=== PATIENT | male | born 2000 | race Caucasian/White ===

== ENCOUNTER 2021-06-28 11:20 | Emergency (ER) | payer OTHER ==
[2021-06-28 12:40] VITALS: BP 115/74; PULSE 80
[2021-06-28] MEDS ORDERED: Ondansetron 4 MG/2 ML SDV IVPUSH ONE (12:41)
[2021-06-28] MEDS ORDERED: Sodium Chloride 0.9% 1,000 ML IV SCH (12:45)
[2021-06-28] MEDS ORDERED: Ketorolac 60 MG/2 ML SDV IM ONE (14:49)
--- NOTE | 2021-06-28 14:58 | EDM.PDOC ---
ED HPI GENERAL MEDICAL PROBLEM - General Chief Complaint: Back Pain or Injury Stated Complaint: BACK PAIN Time Seen by Provider: 06/28/21 14:43 Source of Information: Reports: Patient, RN Notes Reviewed History Limitations: Reports: No Limitations - History of Present Illness INITIAL COMMENTS - FREE TEXT/NARRATIVE: Patient is a 20-year-old male who presents to the ER for his lower back pain. States he has been having issues with this for about the last year. Has been going to the chiropractor for most of his management but he states over the last 3 or 4 days, has had some severe shooting pains down his left leg, and in his back, and also into his groin. States he has had a UTI and a kidney function in the past but he is having no dysuria, frequency or urgency. Thought that his urine might feel a bit darker than it typically is. Patient is not taking anything for pain at home. States that it hurts to bend over and tie his shoes. No numbness or tingling into his feet. Patient denies any other sick-like symptoms, fever/chills, cough/shortness of breath, nausea/vomiting/diarrhea. Lower Back Pain Score (Numeric/FACES): 8 - Related Data Allergies Allergy/AdvReac Type Severity Reaction Status Date / Time No Known Allergies Allergy Verified 04/11/15 10:55 Home Meds: Home Meds Acetaminophen/oxyCODONE [Percocet 325-5 MG] 1 each PO Q6H PRN #20 tab 06/28/21 [Rx] predniSONE 20 mg PO ASDIRECTED #15 tab 06/28/21 [Rx] Past Medical History - Past Health History Medical/Surgical History: Denies Medical/Surgical History ED ROS GENERAL - Review of Systems Review Of Systems: Comprehensive ROS is negative, except as noted in HPI. ED EXAM,LOWER BACK PAIN/INJURY - Physical Exam Exam: See Below Exam Limited By: No Limitations General Appearance: Alert, WD/WN, No Apparent Distress Respiratory/Chest: No Respiratory Distress, Lungs Clear, Normal Breath Sounds, No Accessory Muscle Use, Chest Non-Tender Cardiovascular: Normal Peripheral Pulses, Regular Rate, Rhythm, No Edema GI/Abdominal: Normal Bowel Sounds, Soft, Non-Tender, No Distention, No Mass Extremities: Normal Inspection, Normal Capillary Refill, Limited Range of Motion (of left leg d/t back pain) Neurological: Alert, Normal Mood/Affect, Normal Dorsiflexion, Normal Plantar Flexion, No Motor/Sensory Deficits, Straight Leg Raise (L). No: Straight Leg Raise (R), Saddle Anesthesia Psychiatric: Normal Affect, Normal Mood Skin Exam: Warm, Dry, Intact, Normal Color, No Rash Course - Vital Signs Last Recorded V/S: Last Vital Signs Temp 98.4 F 06/28/21 12:39 Pulse 80 06/28/21 12:39 Resp 20 06/28/21 12:39 BP 115/74 06/28/21 12:39 Pulse Ox 97 06/28/21 12:39 - Orders/Labs/Meds Orders: Active Orders 24 hr Category Date Time Status Communication Order [RC] ASDIRECTED Care 06/28/21 12:41 Active Communication Order [RC] ASDIRECTED Care 06/28/21 12:41 Active Peripheral IV Care [RC] . DIRECTED Care 06/28/21 12:42 Active Sodium Chloride 0.9% [Normal Saline] 1,000 ml Med 06/28/21 12:45 Active IV ASDIRECTED Peripheral IV Insertion Adult [OM.PC] Stat Oth 06/28/21 12:41 Ordered Medication Orders Sodium Chloride (Normal Saline) 1,000 mls @ 150 mls/hr IV ASDIRECTED [facility] Labs: Laboratory Tests 06/28/21 06/28/21 06/28/21 Range/Units 12:41 12:41 13:00 WBC 3.68 L (4.23-9.07) K/mm3 RBC 5.44 (4.63-6.08) M/mm3 Hgb 16.3 (13.7-17.5) gm/dl Hct 46.0 (40.1-51.0) % MCV 84.6 (79.0-92.2) fl MCH 30.0 (25.7-32.2) pg MCHC 35.4 (32.2-35.5) g/dl RDW Std Deviation 39.2 (35.1-43.9) fL Plt Count 191 (163-337) K/mm3 MPV 9.9 (9.4-12.3) fl Neut % (Auto) 39.5 (34.0-67.9) % Lymph % (Auto) 29.6 (21.8-53.1) % [place] % (Auto) 29.3 H (5.3-12.2) % Eos % (Auto) 0.5 L (0.8-7.0) Baso % (Auto) 1.1 (0.1-1.2) % Neut # (Auto) 1.45 L (1.78-5.38) K/mm3 Lymph # (Auto) 1.09 L (1.32-3.57) K/mm3 [place] # (Auto) 1.08 H (0.30-0.82) K/mm3 Eos # (Auto) 0.02 L (0.04-0.54) K/mm3 Baso # (Auto) 0.04 (0.01-0.08) K/mm3 Manual Slide Review Abnormal smear Sodium 140 (136-145) mEq/L Potassium 4.1 (3.5-5.1) mEq/L Chloride 100 (98-107) mEq/L Carbon Dioxide 29 (21-32) mEq/L Anion Gap 15.1 H (5-15) BUN 22 H (7-18) mg/dL Creatinine 1.1 (0.7-1.3) mg/dL Est Cr Clr Drug Dosing 115.62 mL/min Estimated GFR (MDRD) > 60 (>60) mL/min BUN/Creatinine Ratio 20.0 H (14-18) Glucose 117 H (70-99) mg/dL Calcium 8.4 L (8.5-10.1) mg/dL Total Bilirubin 0.7 (0.2-1.0) mg/dL AST 22 (15-37) U/L ALT 45 (16-63) U/L Alkaline Phosphatase 47 (46-116) U/L Total Protein 8.1 (6.4-8.2) g/dl Albumin 4.2 (3.4-5.0) g/dl Globulin 3.9 gm/dL Albumin/Globulin Ratio 1.1 (1-2) Urine Color Yellow (Yellow) Urine Appearance Clear (Clear) Urine pH 5.5 (5.0-8.0) Ur Specific [place] > or = 1.030 (1.005-1.030) Urine Protein Trace H (Negative) Urine Glucose (UA) Negative (Negative) Urine Ketones Trace H (Negative) Urine Occult Blood Negative (Negative) Urine Nitrite Negative (Negative) Urine Bilirubin 1+ H (Negative) Urine Urobilinogen 1.0 (0.2-1.0) Ur Leukocyte Esterase Negative (Negative) Urine RBC 0-5 (0-5) /hpf Urine WBC 0-5 (0-5) /hpf Ur Squamous Epith Cells 0-5 (0-5) /hpf Urine Bacteria Moderate H (FEW) /hpf Urine Mucus Few (FEW) /hpf Meds: Medications Generic Name Dose Route Start Last Admin Trade Name Freq PRN Reason Stop Dose Admin Sodium Chloride 1,000 mls @ 150 mls/hr 06/28/21 12:45 Normal Saline IV ASDIRECTED ONEYDA Discontinued Medications Generic Name Dose Route Start Last Admin Trade Name Freq PRN Reason Stop Dose Admin Ketorolac Tromethamine 60 mg 06/28/21 14:49 Ketorolac 60 Mg/2 Ml Sdv IM 06/28/21 14:50 ONETIME ONE Ondansetron HCl 4 mg 06/28/21 12:41 Ondansetron 4 Mg/2 Ml Sdv IVPUSH 06/28/21 12:42 ONETIME ONE - Re-Assessments/Exams Free Text/Narrative Re-Assessment/Exam: 06/28/21 14:54 Patient presents to the ER for evaluation of his lower back pain. Labs were obtained at the time of triage. All of these are within normal limits, no sign of a UTI or kidney stone via no blood in the urine. I will go ahead and give him IM Toradol in the ER, and send him home with some Percocet tablets and prednisone for ongoing management. Departure - Departure Time of Disposition: 14:55 Disposition: Home, Self-Care 01 Condition: Good Clinical Impression: Low back pain Qualifiers: Chronicity: acute Back pain laterality: bilateral Sciatica presence: with sciatica Sciatica laterality: sciatica of left side Qualified Code(s): M54.42 - Lumbago with sciatica, left side - Discharge Information *PRESCRIPTION DRUG MONITORING PROGRAM REVIEWED*: Yes *COPY OF PRESCRIPTION DRUG MONITORING REPORT IN PATIENT CAROLE: No Prescriptions: Acetaminophen/oxyCODONE [Percocet 325-5 MG] 1 each PO Q6H PRN #20 tab PRN Reason: Pain predniSONE 20 mg PO ASDIRECTED #15 tab Instructions: Chronic Back Pain, [id number] Referrals: PCP,None [Primary Care Provider] - Additional Instructions: You have been evaluated in the ED for your low back pain. Laboratory evaluation at today's visit was unremarkable for any acute findings like UTI. Please use ice as tolerated to the affected area. Please try to elevate the affected area to relieve swelling. You were given a prescription for a strong pain medication, oxycodone/acetaminophen 5/325 mg, please take 1 tab every 6 hours as needed for pain not relieved by Tylenol or ibuprofen alone. Please note this medication does contain Tylenol in it, so do not take more than 4000 mg in a 24-hour time span. These medications can be addictive, so please take as few as possible to achieve adequate pain control. These meds can also be quite constipating, recommend that you increase your oral fluid intake and take a stool softener like MiraLAX while taking these medications. Do not drive while taking this medication. You have been given a prescription for prednisone, please take as directed. Your prescription was electronically sent to [facility] pharmacy located near [facility]. Please follow-up with your regular provider for re-evaluation, if your injury is not feeling much better in roughly 7 to 10 days time. Please return to ED if your symptoms should change or worsen. Sepsis Event Note (ED) - Focused Exam Vital Signs: Vital Signs Temp Pulse Resp BP Pulse Ox 06/28/21 12:39 98.4 F 80 20 115/74 97 - My Orders Last 24 Hours: My Active Orders 06/28/21 12:41 Communication Order [RC] ASDIRECTED Communication Order [RC] ASDIRECTED Peripheral IV Insertion Adult [OM.PC] Stat 06/28/21 12:42 Peripheral IV Care [RC] . DIRECTED 06/28/21 12:45 Sodium Chloride 0.9% [Normal Saline] 1,000 ml IV ASDIRECTED - Assessment/Plan Last 24 Hours: My Active Orders 06/28/21 12:41 Communication Order [RC] ASDIRECTED Communication Order [RC] ASDIRECTED Peripheral IV Insertion Adult [OM.PC] Stat 06/28/21 12:42 Peripheral IV Care [RC] . DIRECTED 06/28/21 12:45 Sodium Chloride 0.9% [Normal Saline] 1,000 ml IV ASDIRECTED
== END 2021-06-28 15:04 | disposition home or self-care (01) ==
LOC: JD.ED 11:20
DX: M54.42 Lumbago with sciatica, left side (principal); M54.41 Lumbago with sciatica, right side
CPT/HCPCS: 36415; 80053; 81001; 85025; 96372; 99283; J1885

== ENCOUNTER 2022-08-13 04:42 | Emergency (ER) | payer BC ==
[2022-08-13 04:53] VITALS: BP 139/75; PULSE 77
[2022-08-13] MEDS ORDERED: Iopamidol 612 MG/ML 100 ML Bottle IVPUSH ONE (05:03)
[2022-08-13] MEDS ORDERED: Iopamidol 612 MG/ML 50 ML SDV IVPUSH ONE (05:03)
== END 2022-08-13 07:22 | disposition home or self-care (01) ==
LOC: JD.ED 04:42
DX: S83.92XA Sprain of unspecified site of left knee, initial encounter (principal)
CPT/HCPCS: 73564-26-LT; 73564-LT; 73610-26-LT; 73610-LT; 99283